=== PATIENT | female | born 2000 | race Hispanic/Latino ===

== ENCOUNTER 2022-07-19 06:59 | Emergency (ER) | payer OTHER ==
[~2022-07-19] VITALS: Ht 162.6 cm; Wt 72.6 kg
[2022-07-19] MEDS ORDERED: 0.9%NACL 1000ML 1,000 ML IV ONE (07:30)
[2022-07-19] MEDS ORDERED: ONDANSETRON 4MG INJ IVP ONE (07:30)
[2022-07-19] MEDS ORDERED: MORPHINE 4 MG SYG IM ONE (07:30)
[2022-07-19 07:36] LABS: BASOPHILS % (AUTO) 0.2 % (0.0-5.0); EOSINOPHILS % (AUTO) 0.3 % (0.0-8.0); HEMATOCRIT 40.8 % (36-48); LYMPHOCYTES % (AUTO) 14.7 % (21.0-51.0); MEAN CORPUSCULAR HEMOGLOBIN 28.1 pg (27.0-33.0); MEAN CORPUSCULAR HGB CONC 32.6 g/dL (32.0-36.0); MEAN CORPUSCULAR VOLUME 86.3 fL (80-100); NEUTROPHILS % (AUTO) 79.3 % (40.0-77.0); PLATELET COUNT (AUTO) 232 K/uL (130-400); RED BLOOD CELL COUNT(AUTO) 4.73 MIL/uL (4.00-5.50); RED CELL DISTRIBUTION WIDTH 12.7 % (11.0-15.5); WHITE BLOOD COUNT (AUTO) 13.3 K/uL (4.8-10.8)
[2022-07-19 07:47] LABS: INR 0.93 (0.85-1.15); PROTHROMBIN TIME 9.6 SEC (9.6-11.6)
[2022-07-19 07:48] LABS: PARTIAL THROMBOPLASTIN TIME 28.1 SEC (26.3-35.5)
[2022-07-19 07:52] LABS: ALANINE AMINOTRANSFERASE 38 U/L (12-78); ALBUMIN 3.7 g/dL (3.5-5.0); ASPARTATE AMINOTRANSFERASE 20 U/L (10-37); CARBON DIOXIDE 29 mmol/L (21-32); CHLORIDE 101 mmol/L (101-111); CREATININE 0.6 mg/dL (0.5-1.5); GLOMERULAR FILTR. RATE CALC 133 mL/min (>90); GLUCOSE,RANDOM 103 mg/dL (70-105); POTASSIUM 3.4 mmol/L (3.5-5.1); SODIUM SERUM 139 mmol/L (136-145); TOTAL PROTEIN, SERUM 7.5 g/dL (6.0-8.3); UREA NITROGEN, BLOOD 9 mg/dL (7-18)
[2022-07-19 07:54] LABS: LIPASE < 50 U/L (114-286)
[2022-07-19] MEDS ORDERED: DIPH,PERTUSS(ACELL),TET VAC/PF 0.5 ML VIAL IM ONE (08:00)
[2022-07-19] MEDS ORDERED: IBUP-2070 PO (10:18)
[2022-07-19] MEDS ORDERED: METH-811 PO (10:18)
[2022-07-19 10:19] VITALS: BP 117/70
== END 2022-07-19 10:29 | disposition home or self-care (01) ==
LOC: EDH 06:59 → EDBD 06:59 → EDH 10:29
DX: S50.11XA Contusion of right forearm, initial encounter (principal); S37.892A Contusion of other urinary and pelvic organ, initial encounter; X58.XXXA Exposure to other specified factors, initial encounter; Y93.89 Activity, other specified; Y92.89 Other specified places as the place of occurrence of the external cause; Y99.8 Other external cause status
CPT/HCPCS: 99285; 70450; 71045; 96361; 96375; 80053; 83690; 85025; 85610; 85730; 36415; 90715; 73080; 73090; 72170; 72125; 72131; 96372; 90471; J7030; J2270